=== PATIENT | male | born 1955 | race American Indian/Alaskan Native ===

== ENCOUNTER 2021-04-13 11:51 | Emergency (ER) | payer MEDICARE ==
[2021-04-13 12:15] VITALS: BP 135/81
[2021-04-13 14:36] LABS: Basophils % (Auto) 0.3 % (0.0-1.8); Eosinophils % (Auto) 0.5 % (0.0-4.3); Hematocrit 40.8 % (35.5-45.6); Hemoglobin 13.1 gm/dl (11.8-15.2); Lymphocytes # (Auto) 1.7 K/mm3 (1.2-5.4); Lymphocytes % (Auto) 26.7 % (13.4-35.0); Mean Corpuscular HGB Conc 32 % (32-34); Monocytes # (Auto) 0.4 K/mm3 (0.0-0.8); Monocytes % (Auto) 5.7 % (0.0-7.3); Platelet Count 152 K/mm3 (140-440); Red Blood Count 6.09 M/mm3 (3.65-5.03); Red Cell Distribution Width 16.6 % (13.2-15.2)
[2021-04-13 14:53] LABS: Alanine Aminotransferase 12 units/L (7-56); BUN/Creatinine Ratio 18; Blood Urea Nitrogen 14 mg/dL (9-20); Calcium 10.7 mg/dL (8.4-10.2); Hemolysis Index 17
[2021-04-13 14:56] LABS: Mean Corpuscular Volume 67 fl (84-94)
--- NOTE | 2021-04-13 15:06 | Emergency Department Report ---
ED General Adult HPI - General Chief complaint: Weakness Stated complaint: BACK PAIN Time Seen by Provider: 04/13/21 13:59 Source: patient Mode of arrival: Ambulatory Limitations: No Limitations - History of Present Illness Initial comments: Patient is a 65-year-old male presents emergency room complaints of lightheadedness that began to arrival. States that today he was out working in his yard and sweating a lot. He states he then developed some epigastric abdominal discomfort and nausea and then had 2 episodes of vomiting. He denies any diarrhea, fever, chest pain, shortness of breath, leg swelling, cough. No allergies medications. - Related Data Previous Rx's Medication Instructions Recorded Last Taken Type Acetaminophen/Codeine [Tylenol #3] 1 tab PO Q6H PRN #10 tab 12/28/14 Unknown Rx Cyclobenzaprine [Flexeril 10mg] 10 mg PO BID PRN #10 tablet 12/28/14 Unknown Rx Ibuprofen [Motrin 600 MG tab] 600 mg PO Q8H PRN #20 tablet 12/28/14 Unknown Rx predniSONE [Prednisone] 40 mg PO QDAY #3 day 12/28/14 Unknown Rx HYDROcodone/APAP 5-325 [[place] 1 each PO Q8HR PRN #14 tablet 01/02/15 Unknown Rx 5/325] Meloxicam 15 mg PO QDAY #10 tablet 01/02/15 Unknown Rx Allergies Allergy/AdvReac Type Severity Reaction Status Date / Time No Known Allergies Allergy Verified 04/13/21 12:14 ED Review of Systems ROS: Stated complaint: BACK PAIN Other details as noted in HPI Comment: All other systems reviewed and negative ED Past Medical Hx - Past Medical History Hx Hypertension: Yes Additional medical history: HERNIATED DISC - Social History Smoking Status: Never Smoker Substance Use Type: None - Medications Home Medications: Home Medications Medication Instructions Recorded Confirmed Last Taken Type Acetaminophen/Codeine [Tylenol #3] 1 tab PO Q6H PRN #10 tab 12/28/14 Unknown Rx Cyclobenzaprine [Flexeril 10mg] 10 mg PO BID PRN #10 tablet 12/28/14 Unknown Rx Ibuprofen [Motrin 600 MG tab] 600 mg PO Q8H PRN #20 tablet 12/28/14 Unknown Rx predniSONE [Prednisone] 40 mg PO QDAY #3 day 12/28/14 Unknown Rx HYDROcodone/APAP 5-325 [[place] 1 each PO Q8HR PRN #14 tablet 01/02/15 Unknown Rx 5/325] Meloxicam 15 mg PO QDAY #10 tablet 01/02/15 Unknown Rx ED Physical Exam - General Limitations: No Limitations General appearance: alert, in no apparent distress - Head Head exam: Present: atraumatic, normocephalic - Eye Eye exam: Present: normal appearance - ENT ENT exam: Present: mucous membranes moist - Respiratory Respiratory exam: Present: normal lung sounds bilaterally. Absent: respiratory distress, wheezes, rales, rhonchi, stridor, chest wall tenderness, accessory muscle use, decreased breath sounds, prolonged expiratory - Cardiovascular Cardiovascular Exam: Present: regular rate, normal rhythm, normal heart sounds. Absent: systolic murmur, diastolic murmur, rubs, gallop - GI/Abdominal GI/Abdominal exam: Present: soft, normal bowel sounds. Absent: distended, tenderness, guarding, rebound, rigid - Neurological Exam Neurological exam: Present: alert, oriented X3 - Psychiatric Psychiatric exam: Present: normal affect, normal mood - Skin Skin exam: Present: warm, dry, intact ED Course Vital Signs 04/13/21 12:11 Temperature 97.6 F Pulse Rate 74 Respiratory 20 Rate Blood Pressure 135/81 O2 Sat by Pulse 98 Oximetry ED Medical Decision Making - Lab Data Result diagrams: 04/13/21 14:18 04/13/21 14:18 - Medical Decision Making Patient is a 65-year-old male presents emergency room complaints of lightheadedness that began to arrival. States that today he was out working in his yard and sweating a lot. He states he then developed some epigastric abdominal discomfort and nausea and then had 2 episodes of vomiting. He denies any diarrhea, fever, chest pain, shortness of breath, leg swelling, cough. No allergies medications. Vitals are normal. No abnormality on physical examination as documented in chart. Advised patient that we would order blood work, urine study, EKG. Patient was agreeable with plan. Patient eloped prior to completion of test and without a full complete medical examination. Critical care attestation.: If time is entered above; I have spent that time in minutes in the direct care of this critically ill patient, excluding procedure time. ED Disposition Clinical Impression: Light-headed Nausea & vomiting Qualifiers: Vomiting type: unspecified Vomiting Intractability: non-intractable Qualified Code(s): R11.2 - Nausea with vomiting, unspecified Abdominal pain Qualifiers: Abdominal location: epigastric Qualified Code(s): R10.13 - Epigastric pain Disposition: Z- ELOPED Is pt being admited?: No Does the pt Need Aspirin: No Condition: Undetermined Referrals: PRIMARY CARE, [Primary Care Provider] - 3-5 Days
== END 2021-04-13 15:05 | disposition left against medical advice (07) ==
LOC: ED 11:51
DX: R42 Dizziness and giddiness (principal); R11.2 Nausea with vomiting, unspecified; R10.13 Epigastric pain; I10 Essential (primary) hypertension; Z79.899 Other long term (current) drug therapy
CPT/HCPCS: 36415; 80053; 82550; 83690; 84484; 85025; 99282